=== PATIENT | male | born 1950 | race Caucasian/White ===

== ENCOUNTER → 2018-12-05 | Outpatient (CLI) | payer OTHER ==
[~2018-12-05] VITALS: Ht 177.8 cm; Wt 79.0 kg
[~2018-12-05] MED LIST: ELIQUIS5 MG PO
[2018-12-05 07:28] VITALS: BP 115/87
--- NOTE | 2018-12-05 09:32 | TEE ---
[facility] [address] [place] [address] TRANSESOPHAGEAL ECHOCARDIOGRAM Name: DICKSON CAIN Room #: REG [facility]#: [id number] ������������� Admission: 12/05/18 ������������� Attend Phys: Yosef Sood, Discharge: ��� ������������� ��� Date of : 54 Date of Service: 12/05/18 0931 �� Report #: [id number] �������� ��������������������������������������������[id number] THIS REPORT FOR: //name// APPROVED REPORT Study performed: 12/05/2018 08:30:22 EXAM: Comprehensive 2D, Doppler, and color-flow Echocardiogram Patient Location: Out-Patient Room #: Holding 9 Status: routine BSA: 1.97 HR: 76 bpm BP: 115/87 mmHg Other Information Study Quality: Excellent Indications Atrial Fibrillation Echo Enhancing Agent Indication: Rule out Shunt Agent(s) / Amount(s) Used: Agitated Saline 7 cc Procedure After obtaining informed consent, patient underwent transesophageal echo in the [employer]. Type of Sedation : Conscious Sedation Sedation was administered by Nurse. Sedation was achieved intravenously with: Versed (2 mg) Fentanyl (50 mcg) Transesophageal probe was inserted and advanced into esophagus without difficulty by Yosef Sood MD. Echo enhancement indication: R/O Septal defect. Echo enhancement agent administered: Agitated Saline The OSCAR was performed without complications. Throughout the procedure, the blood pressure, pulse oximetry, cardiac rhythm, and rate were monitored. The patient tolerated the procedure without adverse effects. Recovery from conscious sedation was uneventful and vital signs were stable. Left Ventricle [facility] [address] [place] [address] TRANSESOPHAGEAL ECHOCARDIOGRAM Name: DICKSON CAIN Room #: REG [facility]#: [id number] ������������� Admission: 12/05/18 ������������� Attend Phys: Yosef Sood, Discharge: ��� ������������� ��� Date of : 54 Date of Service: 12/05/18 0931 �� Report #: [id number] �������� ��������������������������������������������[id number] The left ventricle is normal size. There is normal LV segmental wall motion. There is normal left ventricular wall thickness. The left ventricular systolic function is normal. The left ventricular ejection fraction is within the normal range. LVEF is 50%. Right Ventricle The right ventricle is normal size. The right ventricular systolic function is normal. Atria Left atrium is dilated. No thrombus is visualized in the left atrium or appendage. No shunting by contrast bubble injection The right atrium size is normal. Aortic Valve The aortic valve is normal in structure, trileaflet No aortic regurgitation is present. There is no aortic valvular stenosis. Mitral Valve The mitral valve is normal in structure. Trace to mild mitral regurgitation. No evidence of mitral valve stenosis. Tricuspid Valve The tricuspid valve is normal in structure. There is no tricuspid valve regurgitation noted. Pulmonic Valve The pulmonary valve is normal in structure. There is no pulmonic valvular regurgitation. Great Vessels The aortic root is normal in size. The ascending aorta is normal in size. IVC is normal in size and collapses >50% with inspiration. The pulmonary artery is normal. Pericardium There is no pericardial effusion. <Conclusion> The left ventricular systolic function is normal. LVEF is 50%. Left atrium is dilated. No thrombus in the left atrium or appendage. No shunting by contrast bubble injection The aortic valve is normal in structure, trileaflet. No regurgitation [facility] [address] [place] [address] TRANSESOPHAGEAL ECHOCARDIOGRAM Name: ANTDICKSON Cummings Room #: [facility]#: [id number] ������������� Admission: 12/05/18 ������������� Attend Phys: Yosef Sood, Discharge: ��� ������������� ��� Date of : 54 Date of Service: 12/05/18930 �� Report #: [id number] �������� ��������������������������������������������[id number] or stenosis. The mitral valve is normal in structure. Trace to mild mitral regurgitation. Normal aorta There is no pericardial effusion. ��������������������������������������������� <ELECTRONICALLY SIGNED> ���������������������������������������� By: Yosef Sood MD, [facility] ��������������������������������������������� 12/05/18930 0 0 Yosef Sood MD, [facility] /INF
== END | disposition home or self-care (01) ==
LOC: CATH 06:34
DX: I48.91 Unspecified atrial fibrillation (principal); Z98.890 Other specified postprocedural states; E78.5 Hyperlipidemia, unspecified; I48.92 Unspecified atrial flutter

== ENCOUNTER → 2018-12-10 | Outpatient (CLI) | payer OTHER ==
[~2018-12-10] VITALS: Ht 180.3 cm; Wt 79.4 kg
--- NOTE | ~2018-12-10 | P ---
[facility] [place] [address] PROCEDURE REPORT Name: ANTDICKSON Room #: JACOBY LINCOLN [facility]#: [id number] Admission: 12/10/18 ������������������ Attend Phys: Romeo Brunson MD Discharge: ������������������ Date of : 54 Report #: [id number] THIS REPORT FOR: //name// CC: Yosef Brunson DATE OF SERVICE: 12/10/2018 PREOPERATIVE DIAGNOSIS: Typical atrial flutter. POSTOPERATIVE DIAGNOSIS: Typical atrial flutter. PROCEDURES PERFORMED: 1. SVT ablation, CPT code 82525. 2. Left atrial pacing and recording, CPT code 32891. 3. Programmed stimulation and pacing after IV drug infusion, CPT code 35230. 4. Intracardiac echo, CPT code 78612. 5. 3D mapping, CPT code 20383. HISTORY: The patient is a 68-year-old with a history of recurrent atrial flutter despite cardioversion, who is here for ablation. ANESTHESIA: The patient underwent MAC anesthesia with no anesthesia related complications. DESCRIPTION OF PROCEDURE: The patient underwent informed consent. We discussed the details of the procedure including the risks, which include but not limited to bleeding, vascular damage, cardiac perforation, stroke, HI as well as damage to the craig conduction system requiring permanent pacemaker. The patient understood these risks and is willing to proceed. The patient was brought to the EP laboratory in a fasting and sedated state and prepped and draped in a sterile fashion. He had undergone a recent OSCAR showing no evidence of left atrial appendage clot. I obtained access to the right femoral vein x 3, placing an 8 and two 7-Angolan short sheaths using the modified Seldinger technique. Next, under fluoroscopy, I placed a SmartTouch ThermoCool ablation catheter into the right atrium and created a 3D geometry and an activation map of his atrial flutter. Based on the activation map using the ablation catheter, this was consistent with cavotricuspid isthmus dependent flutter of a counter clockwise fashion. Next, I attempted to place my decapolar catheter in the coronary sinus, but this would not go in easily. Actually, I had an easier time placing the ablation catheter into the CS. As such, the decapolar catheter was not placed into the coronary sinus. A Duo-Decapolar catheter was placed in the right atrium and the activation pattern was suggestive of counterclockwise flutter as well. At baseline, the patient was in [facility] [address] [place] [address] PROCEDURE REPORT Name: DICKSON CAIN Room #: REG [facility]#: [id number] Admission: 12/10/18 ������������������ Attend Phys: Romeo Brunson MD Discharge: ������������������ Date of : 54 Report #: [id number] atrial flutter with a ventricular rate of 510 milliseconds and atrial cycle length of 270 milliseconds with a QRS duration of 87 milliseconds, and a QT interval 350 milliseconds. Next, I performed entrainment along the cavotricuspid isthmus with a PPI minus tachycardia cycle length of 20 milliseconds consistent with isthmus dependent flutter. Due to difficulties placing the decapolar catheter in the coronary sinus and some difficulties mapping the isthmus, I obtained access to the left femoral vein and placed a 9-Angolan short sheath and placed an ice catheter into the right atrium. Using intracardiac ultrasound, I verified the anatomy of the cavotricuspid isthmus. I also looked at the left atrium, which showed evidence of a thin interatrial septum, evidence of a left common ostium in the right superior and right inferior pulmonary veins. This anatomy looks suitable for AFib ablation if this were to arise in the future. I did create a detailed 3D geometry of the cavotricuspid isthmus using intracardiac ultrasound, which I utilized during ablation. Next, I placed a ramp sheath into the right atrium and placed my SmartTouch ThermoCool catheter into this and performed ablation at 35 claros. I performed a continuous drag lesion and the flutter did not terminate. I performed a slightly more medial drag line and again, the flutter slowed by about 10 milliseconds, but did not terminate. I again performed entrainment from the isthmus and this was still consistent with cavotricuspid isthmus dependent flutter. I therefore performed a very medial line that was quite septal. I performed ablation at this site and when I finally reached the most posterior aspect of the isthmus, his atrial flutter, converted to sinus rhythm. Post-ablation testing was performed and pacing medial and lateral to the line, the transisthmus conduction time was 200 milliseconds with an activation sequence consistent with bidirectional block. Post-ablation, an EP study was performed and AV block was noted at 340 milliseconds. Isoproterenol was initiated at 2 mcg per minute and AV block was noted at 270 milliseconds. AV christian ERP was noted at 330 milliseconds at a 500-millisecond basic drive cycle length. No SVT was induced and there was no atrial fibrillation either. Isoproterenol was turned off and I rechecked conduction across my line. The transisthmus conduction time remained around 190-200 milliseconds. Using intracardiac ultrasound, I verified there was no evidence of pericardial effusion. Post-ablation, he was in sinus rhythm with sinus cycle length of 565 milliseconds, NE interval 170 milliseconds, QRS duration 98 milliseconds, QT interval 340 milliseconds. As such, all catheters and sheaths were pulled, hemostasis was obtained and the patient awoke neurologically and hemodynamically intact. CONCLUSIONS: 1. Successful atrial flutter ablation with evidence of bidirectional block. 2. Normal EP study with no inducible arrhythmias on or off isoproterenol. 3. Normal SA christian function. [facility] [address] [place] [address] PROCEDURE REPORT Name: DICKSON CAIN Room #: REG [facility].#: [id number] Admission: 12/10/18 ������������������ Attend Phys: Romeo Brunson MD Discharge: ������������������ Date of : 54 Report #: [id number] 4. Normal AV christian function. 5. Normal His-Purkinje function. ��������������������������������������������� ���������������������������������������� By: ��������������������������������������������� 1626 1427 Romeo Brunson MD /nt
[2018-12-10 07:02] VITALS: BP 117/78
[2018-12-10 07:12] LABS: ABSOLUTE NEUTROPHILS 2.7 thou/uL (1.4-8.2); BASOPHILS 0.9 % (0.0-2.0); HEMATOCRIT 46.2 % (42.0-52.0); HEMOGLOBIN 15.5 gm/dL (14.0-18.0); LYMPHOCYTES 35.6 % (24.0-44.0); MCH 29.7 pg (26.0-34.0); MCHC 33.6 g/dL (28.0-37.0); MCV 88.4 fL (80.0-100.0); MONOCYTES 10.1 % (1.0-8.0); PLATELET COUNT 203 thou/uL (150-400); POLYS 51.4 % (36.0-66.0); RBC 5.23 mil/uL (4.50-6.00); WBC 5.2 thou/uL (4.0-11.0)
[2018-12-10 07:23] LABS: CALCIUM 9.7 mg/dL (8.5-10.1); CREATININE 1.2 mg/dL (0.7-1.3); POTASSIUM 3.7 mmol/L (3.5-5.1)
[2018-12-10 07:25] LABS: APTT 27.3 Seconds (24.5-32.8); INR 1.1; PROTIME 11.4 Seconds (9.3-11.4)
[2018-12-10 07:29] LABS: ALBUMIN 4.1 g/dL (3.4-5.0); TOTAL BILIRUBIN 0.7 mg/dL (<0.1-1.0); TOTAL PROTEIN 7.3 g/dL (6.4-8.2)
== END | disposition home or self-care (01) ==
LOC: CATH
PROVIDERS: Internal Medicine Cardiovascular Disease
DX: I48.3 Typical atrial flutter (principal); Z98.890 Other specified postprocedural states; E78.5 Hyperlipidemia, unspecified; I73.9 Peripheral vascular disease, unspecified; Z79.899 Other long term (current) drug therapy
CPT/HCPCS: 62110; 62900; 70005

== ENCOUNTER → 2021-03-10 | Outpatient (CLI) | payer OTHER | LOC: SJCVC 09:50 | PROVIDERS: ATTEND Internal Medicine | DX: R94.31 Abnormal electrocardiogram [ECG] [EKG] (principal); I51.7 Cardiomegaly; R00.1 Bradycardia, unspecified; I48.92 Unspecified atrial flutter; R55 Syncope and collapse; E78.5 Hyperlipidemia, unspecified; R53.83 Other fatigue ==

== ENCOUNTER → 2021-03-22 | Outpatient (CLI) | payer OTHER | LOC: SJCVCIMAG 07:43 | PROVIDERS: ATTEND Internal Medicine | DX: I08.1 Rheumatic disorders of both mitral and tricuspid valves (principal); R00.1 Bradycardia, unspecified; R06.00 Dyspnea, unspecified ==